=== PATIENT | male | born 1940 | race Caucasian/White ===

== ENCOUNTER 2025-05-25 12:15 | Outpatient (AMB) | payer MEDICARE, SELFPAY ==
--- NOTE | 2025-05-25 12:21 | MHC.OFFVIS ---
Intake Visit Reasons: CORONARY ARTERY DISEASE Allergies No Known Allergies Allergy (Verified 05/23/25 12:25) Medication List - Last Reconciled 05/25/25 by Nubia Ga MD aspirin (Adult Aspirin Regimen) 81 mg PO DAILY atorvastatin 40 mg PO DAILY metoprolol succinate ER 12.5 mg PO DAILY tamsulosin 0.4 mg PO DAILY HPI Comments Details: ?This is a 85-year-old man who is seen for cerebral microvascular disease, benign familial tremor, dizziness and ataxia. No change in tremors. Last month he started going to one side . He was sent for CT. He has history of coronary stents in 1996 and 1999, tremors as long as he can remember. He has a strong family history of tremors in his mother, 2 brothers, one sister, one son, one daughter. The tremors get worse when he is upset or angry. They are fairly symmetrical. The interfere with eating and writing drinking and fine motor skills. They may have gotten slightly worse over the years. He had an industrial accident involving a saw in 1990 in which he lost the third fourth and fifth fingers of the right hand. ?He comes in now for dizziness and feeling of dysequilibrium on walking off and on. No vertigo. Fell off a ladder in Jul 2023 with large scalp laceration. Did not tolerate Primidone. Is already on Metoprolol for BP. 06/17/24 MRI moderate microvascular disease and generalized atrophy. 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 Difficulty getting to sleep?denies.? Difficulty maintaining sleep?denies?.? Urge to move legs?denies.? Teeth grinding?denies.? Shouting or Kicking during sleep?denies.? Abnormal behavior during sleep?denies.? Excessive sleep?denies.? Snoring?denies.? Daytime sleepiness?denies.? ?? General/Constitutional:? Change in appetite?denies.? Chills?denies.? Fatigue?denies.? Fever?denies.? Weight gain?denies.? Weight loss?denies.? ?? Ophthalmologic:? Blurred vision?denies.? Diminished visual acuity?denies.? ?? ENT:? Stuffiness?denies.? Decreased hearing?denies.? Dry mouth?denies.? Ear pain?denies.? Nosebleed?denies.? Ringing in the ears?denies.? Sinus pain?denies.? Sore throat?denies.? Swollen glands?denies.? ?? Endocrine:? Cold intolerance?denies.? Excessive thirst?denies.? Frequent urination?denies.? Heat intolerance?denies.? ?? Respiratory:? Shortness of breath?denies.? Chest pain?denies.? Cough?denies.? ?? Breast:? Breast lump?denies.? Nipple discharge?denies.? ?? Cardiovascular:? Chest pain at rest?denies.? Chest pain with exertion?denies.? Claudication?denies.? Dizziness?denies.? Fluid accumulation in the legs?denies.? Irregular heartbeat?denies.? Palpitations?denies.? ?? Gastrointestinal:? Abdominal pain?denies.? Constipation?denies.? Diarrhea?denies.? Difficulty swallowing?denies.? Heartburn?denies.? Nausea?denies.? Rectal bleeding?denies.? ?? Hematology:? Easy bruising?denies.? Prolonged bleeding?denies.? ?? Genitourinary:? Frequent urination?denies.? Urgency?denies.? Incontinence?denies.? Erectile Dysfunction?denies.? ?? Musculoskeletal:? Neck pain?denies.? Back pain?denies.? Muscle aches?denies.? Painful joints?denies.? Sciatica?denies.? Weakness?denies.? ?? Podiatric:? Difficulty walking?denies.? Foot numbness?denies.? ?? Neurologic:? Difficulty swallowing?denies.? Balance difficulty?admits.? Coordination?normal.? Difficulty speaking?denies.? Dizziness?admits.? Fainting?denies.? Gait abnormality?denies.? Headache?denies.? Loss of strength?denies.? Loss of use of extremity?denies.? Low back pain?denies.? Memory loss?denies.? Seizures?denies.? Tics?denies.? Tingling/Numbness?denies.? Transient loss of vision?denies.? Tremor?Lifelong tremors in the hands and occasionally in the head.? ?? Psychiatric:? Anxiety?denies.? Auditory/visual hallucinations?denies.? Delusions?denies.? Depressed mood?denies.? Stressors?denies.? Substance abuse?denies.? Suicidal thoughts?denies.? ?? Physical Exam Neuro Other: Neurological: ? Abnormal neurological findings:?mild?tremors of the extended upper extremities of medium? amplitude, slow to medium frequency. Some increase in tremor on [id number]-[id number]-[id number] test. Prominent tremor of the protruded tongue, no? head titubation tremor and jaw tremor..? Mental Status:?alert and oriented X 3,?Normal attention, orientation, memory and affect.? Cranial Nerves:?Pupils are equal, round and reactive to light. Fundoscopy shows normal disc bilaterally. External occular muscles are intact. Visual olivo are full, no ptosis. Face is symmetrical, no facial weakness or droop. Facial sensations are normal. Tongue protrudes in midline. Palate elevates symmetrically. Shoulder shrugging is normal..? Motor Examination:?Normal muscle tone, bulk and strength,?No atrophy or fasciculations,?No drift of the extended upper extremities,?Deep tendon reflexes are 2+?,?Plantars are flexor?.? Straight Leg Raising:?90 degrees.? Sensory Exam:?Normal light touch, temperature, pinprick, vibration and joint-position sensations?,?Rhomberg sign is absent.? Coordination:?no ataxia,?no titubation,?diyplx-al-oyan, ozga-hmnf-aavx test and rapid alternating movements were normal.? Gait Exam:?Within normal limits.? Cerebellar Signs:?Tdihum-oy-vlkn and kxpu-po-xanx is normal,?no dysdiadochokinesia?.? Extrapyramidal System:?Tremors as described above. No rigidity with normal facial expression,?No bradykinesia, no bradyphrenia. Normal arm swing and posture. No propulsion or retropulsion.? Speech:?Normal,?no dysphasia or dysarthria..? Mini Mental Status Exam: ? Level of Consciousness:?Alert.? Orientation:?Knows correct year, month, date, day and season,?Knows correct city, county and state. Knows correct location and floor.? Registration:?Able to register 3 objects.? Attention:?Serial 7's performed accurately.? Recall:?Able to recall 3 out of 3 objects.? Language:?Normal spontaneous speech, fluency, repetition,naming, comprehension, reading and writing.? Total Score:?30/30.? General Examination: ? GENERAL APPEARANCE:?normal,?in no acute distress.? HEAD:?normocephalic,?atraumatic.? EYES:?sclera non-icteric,?conjunctiva clear.? EARS:?auditory canal clear,?tympanic membrane intact, clear.? NOSE:?no lesions.? ORAL CAVITY:?gums normal,?mucosa moist,?no lesions.? THROAT:?clear.? NECK/THYROID:?no cervical lymphadenopathy,?thyroid normal,?neck supple, full range of motion,?no carotid bruit.? SKIN:?no rashes,?no significant birthmarks.? HEART:?S1, S2 normal,?no murmurs.? LUNGS:?clear anteriorly and posteriorly.? CHEST:?no gross rib deformity,?clear to auscultation.? BACK:?normal exam of spine.? EXTREMITIES:?no edema.? PERIPHERAL PULSES:?normal.? PSYCH:?alert, oriented,?cognitive function intact,?cooperative with exam. Assessment & Plan Assessment & Plan (1) Benign familial tremor: Code(s): G25.0 - Essential tremor Category: Medical (2) Ataxia: Code(s): R27.0 - Ataxia, unspecified Category: Medical (3) Cerebral microvascular disease: Code(s): I67.89 - Other cerebrovascular disease Category: Medical Plan continue current meds. Does not want to try any meds for BFT Coding Level of Care Code Est Pt Level 4 (03198) Diagnoses Benign familial tremor G25.0 Ataxia R27.0 Cerebral microvascular disease I67.89
--- OUTSIDE RECORDS SUMMARY | 2025-05-25 13:16 | XMS_ITS | Encounter Summary ---
Author Organization [employer] Address [address] [place] [address] Care Team Providers Care Director Of Academic Support Name Role Phone Pee Ardon MD Primary Care Provider [phone] Encounter Details Date Type Department Care Team (Late st Contact Info) Description 04/25/2025 Telephone Internal Medicine - [place] [address] [place] [id number] Pee Ardon MD [address] [facility] [address] [place] [address] Social History Tobacco Use Types Packs/Day Years Used Date Smoking Tobacco: Former Cigarettes Q uit: 11/10/1996 Smokeless Tobacco: Never Alcohol Use Standard Drinks/Week Comments Yes 0 (1 standard drink = 0.6 oz pur e alcohol) Sex and Gender Information Value Date Recorded Sex Assigned at Not on file Legal Sex Male 8:33 AM EST Gender Identity Not on file Sexual Orientation Not on file documented as of this encounter Progress Notes * Diego Garcia MA - 04/26/2025 2:05 PM EDT Called pt's son at number in encounter caller stated I have the wrong number. If son does call office please inform we can not disclose results as he is not listed on verbal release. * Luba Santana - 04/26/2025 11:27 AM EDT Son called again still waiting for someone to call him re: CT Scan results * Luba Santana - 04/25/2025 4:04 PM EDT Patient son called and would like to speak to someone re: Results of CT SCAN Results were given to patient however Did not understand documented in this encounter Plan of Treatment Not on file documented as of this encounter Visit Diagnoses Not on filedocumented in this encounter Additional Health Concerns Assessment Noted Time PHQ-9 Depression Total Score: 1 11/29/19 11:15 AM EST A fall risk assessment has been complete d for the patient 11/29/2024 11:13 AM EST documented as of this encounter Care Teams Director Of Academic Support Relationship Specialty Start Date End Date Pee Ardon MD [address] [place] [phone] PCP - General Internal Medicine 11/29/24 documented as of this encounter
== END 2025-05-25 12:37 | disposition home or self-care (01) ==
LOC: HO.HSM 12:15
PROVIDERS: PCP Internal Medicine; Referring Provider Internal Medicine; Visit Provider Psychiatry & Neurology Neurology
DX: G25.0 Essential tremor (principal); R27.0 Ataxia, unspecified; I67.89 Other cerebrovascular disease
CPT/HCPCS: 99214

== ENCOUNTER → 2025-05-25 12:15 | Outpatient (BNVA) | payer MEDICARE, SELFPAY | PROVIDERS: PCP Internal Medicine; Referring Provider Internal Medicine; Visit Provider Psychiatry & Neurology Neurology | DX: G25.0 Essential tremor (principal); I67.89 Other cerebrovascular disease; R27.0 Ataxia, unspecified | CPT/HCPCS: 99212 ==